=== PATIENT | male | born 1990 | race Caucasian/White ===

== ENCOUNTER 2018-10-12 10:36 | Inpatient (IN) | payer MEDICAID ==
[~2018-10-12] VITALS: Ht 172.7 cm; Wt 68.0 kg
[2018-10-12 15:05] LABS: BASOPHILS % (AUTO) 0.6 % (0.0-2.0); HEMATOCRIT 42.8 % (41-53); HEMOGLOBIN 14.2 g/dL (13.5-17.5); LYMPHOCYTES # (AUTO) 1.5 K/uL (1.0-4.8); LYMPHOCYTES % (AUTO) 15.8 % (22.0-44.0); MEAN CORPUSCULAR HEMOGLOBIN 30.8 pg (26.0-34.0); MEAN CORPUSCULAR HGB CONC 33.1 G/dL (31.0-37.0); MEAN CORPUSCULAR VOLUME 93 fL (80-100); MONOCYTES # (AUTO) 0.7 K/uL (0.1-1.0); MONOCYTES % (AUTO) 7.2 % (2.0-9.0); NEUTROPHILS # (AUTO) 6.8 K/uL (1.8-7.7); NEUTROPHILS % (AUTO) 74.4 % (40.0-70.0); PLATELET COUNT (AUTO) 193 K/uL (150-450); RED BLOOD CELL COUNT(AUTO) 4.59 MIL/uL (4.50-5.90); RED CELL DISTRIBUTION WIDTH 13.3 % (11.5-14.5)
[2018-10-12 15:38] LABS: ANION GAP 8 mmol/L (8-16); CALCIUM, TOTAL 9.3 mg/dL (8.8-10.5); CARBON DIOXIDE 30 mmol/L (22-29); CHLORIDE 101 mmol/L (98-107); CREATININE 0.85 mg/dL (0.60-1.30); GLOMERULAR FILTR. RATE CALC > 60 mL/min (>60); GLUCOSE,RANDOM 98 mg/dL (70-110); POTASSIUM 3.6 mmol/L (3.5-5.1); SODIUM SERUM 139 mmol/L (136-145); UREA NITROGEN, BLOOD 8 mg/dL (7-18)
[2018-10-12] MEDS ORDERED: PALI39DI IM (15:42)
[2018-10-12 15:45] LABS: ALANINE AMINOTRANSFERASE 99 U/L (12-78); ALBUMIN 4.3 g/dL (3.4-5.0); ALKALINE PHOSPHATASE 73 U/L (46-116); ASPARTATE AMINOTRANSFERASE 35 U/L (15-37); BILIRUBIN,TOTAL 0.8 mg/dL (0.1-1.0); TOTAL PROTEIN, SERUM 7.3 g/dL (6.4-8.2)
[2018-10-12] MEDS ORDERED: ZOLPIDEM TARTRATE 10 MG TABLET PO PRN (17:00)
[2018-10-12] MEDS ORDERED: HALOPERIDOL 5 MG TABLET PO PRN (17:00)
[2018-10-12 23:55] VITALS: BP 120/81
[2018-10-13 07:20] LABS: AMPHET/METH SCREEN,URINE NEGATIVE (NEGATIVE); BARBITURATE SCREEN, URINE NEGATIVE (NEGATIVE); BENZODIAZEPINES SCREEN,URINE NEGATIVE (NEGATIVE); CANNABINOID SCREEN,URINE POSITIVE (NEGATIVE); COCAINE SCREEN,URINE NEGATIVE (NEGATIVE); METHADONE SCREEN, URINE NEGATIVE (NEGATIVE); OPIATE SCREEN,URINE NEGATIVE (NEGATIVE)
[2018-10-13 07:25] LABS: PHENCYCLIDINE SCREEN,URINE NEGATIVE (NEGATIVE)
[2018-10-13 07:30] LABS: CHOL/HDL RATIO 4.8 (4.2-7.3); FREE T4 (FREE THYROXINE) 1.1 ng/dL (0.76-1.46); THYROID STIMULATING HORMONE 0.31 uIU/mL (0.36-3.74)
[2018-10-13 08:07] LABS: APPEARANCE,URINE CLEAR (CLEAR); BILIRUBIN,URINE NEGATIVE (NEGATIVE); GLUCOSE, URINE (UA) NEGATIVE (NEGATIVE); KETONES,URINE NEGATIVE (NEGATIVE); LEUKOCYTE ESTERASE ,URINE NEGATIVE (NEGATIVE); NITRATE,URINE NEGATIVE (NEGATIVE); OCCULT BLOOD,URINE NEGATIVE (NEGATIVE); PROTEIN,URINE NEGATIVE (NEGATIVE); UROBILINOGEN,URINE 0.2 mg/dL (<=1.0)
[2018-10-13] MEDS: BuPROPion HCL XL 150 MG ER TABLET PO SCH (09:02)
[2018-10-13 09:06] VITALS: BP 108/83
[2018-10-13] MEDS ORDERED: PETROLATUM,WHITE 28 GM JELLY TP PRN (16:00)
[2018-10-13] MEDS ORDERED: ALBUTEROL SULFATE HFA 90 MCG/PUFF 8 GM INHALER IH PRN (16:00)
[2018-10-13] MEDS ORDERED: NICOTINE 14 MG/24 HOUR PATCH TD PRN (16:00)
[2018-10-13] MEDS ORDERED: IBUPROFEN 400 MG TABLET PO PRN (16:00)
[2018-10-13] MEDS ORDERED: CloNIDine HCL 0.1 MG TABLET PO PRN (16:00)
[2018-10-13] MEDS ORDERED: ACETAMINOPHEN 325 MG TABLET PO PRN (16:00)
[2018-10-13] MEDS ORDERED: MAG HYDROX/AL HYDROX/SIMETH ES 30 ML SUSPENSION UDCUP PO PRN (16:00)
[2018-10-13] MEDS ORDERED: DOCUSATE SODIUM 100 MG CAPSULE PO PRN (16:00)
[2018-10-13] MEDS ORDERED: MAGNESIUM HYDROXIDE SUSPENSION 30 ML UDCUP PO PRN (16:00)
[2018-10-13] MEDS ORDERED: ONDANSETRON HCL 4 MG TABLET PO PRN (16:00)
[2018-10-13] MEDS ORDERED: LOPERAMIDE HCL 2 MG CAPSULE PO PRN (16:00)
[2018-10-13] MEDS ORDERED: GuaiFENesin/D-METHORPHAN [SUGAR-FREE] 200-20MG/10 ML SYRUP UDCUP PO PRN (16:00)
[2018-10-13 16:28] VITALS: BP 108/67
[2018-10-14 06:07] VITALS: BP 109/61
[2018-10-14 08:13] VITALS: BP 118/66
[2018-10-14] MEDS: BuPROPion HCL XL 150 MG ER TABLET PO SCH (09:01)
[2018-10-14 16:17] VITALS: BP 106/68
[2018-10-15 05:36] VITALS: BP 120/79
[2018-10-15 08:27] VITALS: BP 117/65
[2018-10-15] MEDS: BuPROPion HCL XL 150 MG ER TABLET PO SCH (08:55)
[2018-10-15 16:22] VITALS: BP 108/61
[2018-10-16 00:22] VITALS: BP 98/62
[2018-10-16 08:20] VITALS: BP 101/61
[2018-10-16] MEDS: BuPROPion HCL XL 150 MG ER TABLET PO SCH (09:07)
[2018-10-16] MEDS: LORazepam 2 MG TABLET PO PRN (12:39)
[2018-10-16 16:14] VITALS: BP 120/68
[2018-10-17 06:00] VITALS: BP 116/70
[2018-10-17 08:22] VITALS: BP 107/60
[2018-10-17] MEDS: BuPROPion HCL XL 150 MG ER TABLET PO SCH (10:10)
[2018-10-17 16:27] VITALS: BP 100/60
[2018-10-17] MEDS: LORazepam 2 MG TABLET PO PRN (19:02)
[2018-10-18 02:20] VITALS: BP_SYST 103; BP_SYST 108; BP_DIAS 54; BP_DIAS 64
[2018-10-18] MEDS: BuPROPion HCL XL 150 MG ER TABLET PO SCH (08:01)
[2018-10-18 08:34] VITALS: BP 120/81
[2018-10-18 16:37] VITALS: BP_SYST 124; BP_SYST 73; BP_DIAS 82
[2018-10-19 06:05] VITALS: BP 121/68
[2018-10-19 08:25] VITALS: BP 118/75
[2018-10-19] MEDS: BuPROPion HCL XL 150 MG ER TABLET PO SCH (09:26)
[2018-10-19 16:22] VITALS: BP 117/79
[2018-10-19] MEDS: LORazepam 2 MG TABLET PO PRN (17:42)
[2018-10-19 19:20] VITALS: BP 119/79
[2018-10-20 02:23] VITALS: BP 121/68
[2018-10-20 08:25] VITALS: BP 123/70
[2018-10-20] MEDS: BuPROPion HCL XL 150 MG ER TABLET PO SCH (09:43)
[2018-10-20] MEDS ORDERED: BUPR-93 PO (15:56)
[2018-10-20 16:12] VITALS: BP 112/70
[2018-10-20] MEDS: LORazepam 2 MG TABLET PO PRN (19:05)
[2018-10-21 05:17] VITALS: BP 108/74
[2018-10-21 08:12] VITALS: BP 100/60
[2018-10-21] MEDS: BuPROPion HCL XL 150 MG ER TABLET PO SCH (09:07)
[2018-10-21] MEDS: LORazepam 2 MG TABLET PO PRN (09:38)
== END 2018-10-21 18:15 | disposition home or self-care (01) | DRG 751 ==
LOC: EDSEX 10:39 → EMS 10:39 → B2X 21:02
PROVIDERS: ADMIT Psychiatry & Neurology Psychiatry; ATTEND Psychiatry & Neurology Psychiatry
DX: F33.2 Major depressive disorder, recurrent severe without psychotic features (principal); R45.851 Suicidal ideations; R45.87 Impulsiveness; R45.84 Anhedonia; F12.90 Cannabis use, unspecified, uncomplicated; F17.210 Nicotine dependence, cigarettes, uncomplicated; G44.209 Tension-type headache, unspecified, not intractable; F41.9 Anxiety disorder, unspecified; Z59.0 Homelessness
CPT/HCPCS: 80307; 84439; 84443; 87081; G0480